=== PATIENT | male | born 1945 | race Caucasian/White ===

== ENCOUNTER 2017-05-01 10:20 | Outpatient (CLI) | payer MEDICARE ==
[2017-05-01 12:30] LABS: Hematocrit 44.5 % (42.0-52.0); Red Blood Cell (RBC) Count 4.64 mill/uL (4.70-6.10); White Blood Cell (WBC) Count 5.5 thou/uL (4.8-10.8)
[2017-05-01 12:33] LABS: Prothrombin Time 12.7 SEC (12.0-14.7)
== END 2017-05-01 10:21 | disposition home or self-care (01) ==
LOC: LABBT 10:20
PROVIDERS: ATTEND Neurological Surgery
DX: Z01.812 Encounter for preprocedural laboratory examination (principal); M48.061 Spinal stenosis, lumbar region without neurogenic claudication
CPT/HCPCS: 85027; 85610; 85730

== ENCOUNTER 2017-05-04 10:10 | Day surgery (SDC) | payer MEDICARE ==
--- NOTE | 2017-04-27 07:45 | HP ---
HISTORY OF PRESENT ILLNESS: Mr. Redmond is a 71-year-old male that presents with low back pain and generalized shooting pain in the back of his thighs, right greater than left. The pain has been pr esent for several years, but has gotten worse over the last year. 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 The pain is made worse on walking and walk ing downstairs and when lying flat. The pain is made somewhat better when given analgesics. He has had physical therapy and walks approximately 5 miles a day. He works out every day which has Science. He has not had any injections in his back from pain management. MRI of the lumbar spine at [facility] on CD. X-rays at [facility] [place]. REVIEW OF SYSTEMS: Ten-point review of systems completed and is otherwise negative unless stated in the above HPI. PAST MEDICAL HISTORY: Low back pain and knee pain. PAST SURGICAL HISTORY: Knee surgery at age 52. HOSPITALIZATIONS: Constipation at age 71. FAMILY HISTORY: Father is , diagnosed with diabetes. Mother is , diagnosed with hy pertension. Siblings are alive, diagnosed with diabetes and hypertension and heart disease. SOCIAL HISTORY: Nonsmoker, retired, , has two children. MEDICATIONS: 1. Taking temazepam 30 mg capsule 1 capsule at bedtime as needed orally once a day. 2. Bupropion HCL ER 50 mg tablet extended release 12-hour 1 tablet in the morning orally once a day . 3. Lisinopril 10 mg tablet 1 tablet orally once a day. 4. Simvastatin 20 mg tablet 1 tablet in the evening orally once daily. 5. Escitalopram oxalate 20 mg tablet 0.5 mg tablet orally once a day. 6. Trazodone. 7. Tamsulosin HCL 0.4 mg capsule 1 capsule orally once a day. ALLERGIES: CLARITIN. PHYSICAL EXAMINATION: HEENT: Normocephalic and atraumatic. Hearing is intact. Moist mucous membranes. Trachea midline. Eyes: Pupils are equal and reactive to light. Extraocular muscles are intact. Sclerae is white and nonicteric. PSYCHIATRIC: Normal mood and affect. CARDIOVASCULAR/CARDIOPULMONARY: Regular rate and rhythm, normal S1, S2 heart sounds: No clubbing o r cyanosis noted. Intact pedal pulses bilaterally. MUSCULOSKELETAL: Lower extremity, 5/5 strength in bilateral iliopsoas, quadriceps, hamstrings, righ t tibialis anterior and extensor hallucis longus. Sensory deficits in the right greater than left i n the low back and posterior thighs. Tender to palpation of the right SI joint. RESPIRATORY: Even respirations, good effort all lung mackenzie sound clear with no wheezing or crackle s. NEUROLOGIC: Cranial nerves II-XII are grossly intact. Speech is fluent. He answers my questions a ppropriately. The patient has normal gait and station. ASSESSMENT: 1. Lumbar spinal stenosis. 2. Lumbar radiculopathy. PLAN: Since the patient has failed therapy, physical therapy and SI joint/lumbar MYLA injections hav e not been helping. Dr. Manuel offered a lumbar laminectomy to treat his leg pain. We have revi ewed the risks, benefits, and possible complications of surgery with Mr. Redmond and he is fully un derstands the risks and is willing to proceed with the surgery.
[2017-05-01 10:41] VITALS: BMI 25.4
[2017-05-04] MEDS ORDERED: CEFAZOLIN/Water 2 GM/20 ML SYRINGE ONE (11:04)
[2017-05-04] MEDS ORDERED: Midazolam HCl 2 mg/2 ml Vial ONE ×2 (11:04→12:09)
[2017-05-04] MEDS ORDERED: Sodium Chloride 0.9% 20 ML ONE (11:49)
[2017-05-04] MEDS ORDERED: Thrombin 5000 UNITS/5 ML VIAL ONE (11:49)
[2017-05-04] MEDS ORDERED: Bupivacaine PF 0.5% 30 ML VIAL ONE (11:49)
[2017-05-04] MEDS ORDERED: Fentanyl 250 MCG/5 ML VIAL ONE (12:08)
[2017-05-04] MEDS ORDERED: Rocuronium Bromide 50 MG/5 ML VIAL ONE (12:13)
[2017-05-04] MEDS ORDERED: Ondansetron HCl/PF 4 MG/2 ML Vial ONE (12:32)
[2017-05-04] MEDS ORDERED: PHENYLEPHRINE-NS 100 MCG/ML 10 ML SYRINGE ONE (12:32)
[2017-05-04] MEDS ORDERED: Propofol 200 MG/20 ML VIAL ONE (12:32)
[2017-05-04] MEDS ORDERED: ePHEDrine/0.9% NaCl/PF SYRINGE 50 mg/10 ml ONE (12:32)
[2017-05-04] MEDS ORDERED: Dexamethasone 20 MG/5 ML VIAL ONE (12:32)
[2017-05-04] MEDS ORDERED: Lidocaine 2% PF 10 ML AMP (For Epidural Use) ONE (12:32)
[2017-05-04] MEDS ORDERED: Calcium Chloride 1 GM/10 ML Abboject SYRINGE ONE (13:58)
[2017-05-04] MEDS ORDERED: HYDROcodone/Acetaminophen 5/325 mg Tablet ONE ×2 (16:23)
--- NOTE | 2017-05-04 17:41 | OP ---
DATE OF PROCEDURE: 05/04/2017 SURGEON: Aida Manuel M.D. CLINICAL RN: Vladimir Miramontes PA-C. PREOPERATIVE INDICATION: Treat pain, prevent neurological deterioration. PREOPERATIVE DIAGNOSES: Severe lumbar stenosis with neurogenic claudication, L2-L3 and L3-L4. POSTOPERATIVE DIAGNOSES: Severe lumbar stenosis with neurogenic claudication, L2-L3 and L3-L4. OPERATIVE PROCEDURE: Decompressive laminectomy, medial facetectomy, foraminotomy L2-L3, L3-L4. PREOPERATIVE MEDICATION: Ancef 2 grams IV. DRAIN NUMBER: Zero. DRAIN TYPE: None. OPERATIVE DICTATION: The patient was brought to the operating room. General endotracheal anesthesi a was induced. The patient was positioned prone on the operating table with his chest and hips supp orted by gel-filled chest rolls. A lateral fluoro radiograph was used to plan our incision. The [facility] skin was sterilely prepped and draped. We opened our incision with a 10 blade knife and contro lled bleeding with bipolar and monopolar cautery. We used monopolar cautery to dissect through the subcutaneous tissues to the thoracodorsal fascia. We incised the fascia in the midline and reflecte d the paraspinal muscles off the spinous process and lamina of the L2, L3, and L4. A self-retaining retractor was placed. A lateral fluoro radiograph confirmed the levels upon which we were operatin g. We then removed the spinous processes of L2 and L3 and the superior portion of L4. We thinned t he lamina with a high speed drill. Using a Kerrison rongeur, we fashioned the laminectomy from the bottom of L3 to the L2 pedicles. We widened our laminectomy defect until we were flush with the L2, L3, and L4 pedicles. We undermined the lateral recesses were performed medial facetectomies. We p erformed foraminotomies over the exiting, L2, L3, and L4 nerve roots. We irrigated copiously with b acitracin irrigation. We waxed the bone edges. We controlled ventral epidural bleeding with gentle bipolar cautery. We passed a Taylor ball probe from the spinal canal of the foramen with each of t he L2, L3, and L4 nerve roots on each side. We infused local anesthetic in the paraspinal muscles a nd closed the wound in anatomic layers and applied a sterile dressing. This was a clean case and no contamination.
== END 2017-05-04 17:25 | disposition home or self-care (01) ==
LOC: SDC 10:10
PROVIDERS: ATTEND Neurological Surgery
PROC: 00NY0ZZ Release Lumbar Spinal Cord, Open Approach (ICD-10-PCS; principal; 2017-05-04)
DX: M48.062 Spinal stenosis, lumbar region with neurogenic claudication (principal); M54.16 Radiculopathy, lumbar region; Z79.899 Other long term (current) drug therapy; Z82.49 Family history of ischemic heart disease and other diseases of the circulatory system; Z83.3 Family history of diabetes mellitus; Z98.890 Other specified postprocedural states
CPT/HCPCS: 76001; A4216; J1100; J2001; J2250; J2405; J2704; J3010; J3370; J3490; S0020

== ENCOUNTER 2018-12-11 10:04 | Outpatient (CLI) | payer MEDICARE ==
[~2018-12-11 10:04] MED LIST: Gadobenate Dimeglumine 529 MG/1 ML (20ML VIAL) ONE
--- NOTE | 2018-12-11 11:43 | MRI ---
MR the lumbar spine with and without contrast INDICATION: Postlaminectomy syndrome COMPARISON: Lumbar spinal radiograph dated March 09, 2017 TECHNIQUE: Multiplanar multisequence MR images were obtained of lumbar spine with and without IV cont rast. Contrast: 18 cc of MultiHance. FINDINGS: Bone marrow: Normal. Distal spinal cord and conus: Normal. Conus is seen to terminate at the T12-L1 level. Visualized retroperitoneum and paraspinal soft tissues: Normal. No lymphadenopathy demonstrated. Vertebral levels: L5-S1: There is mild facet joint degenerative change and a broad-based disc bulge but no appreciable central canal or neural foraminal narrowing. L4-5: There is a broad-based disc bulge with facet hypertrophy inducing mild central canal narrowing with moderate to severe bilateral neural foraminal narrowing. L3-4: There is slight retrolisthesis of L3 on L4. There is an asymmetric to the left disc osteophyte complex and facet hypertrophy inducing severe bilateral neural foraminal narrowing. There are laminectomy changes at the L3-4 level. L2-3: There are laminectomy changes at L2-3. There is a broad-based disc osteophyte complex and facet hypertrophy inducing moderate right and mild left neural foraminal narrowing. L1-L2: There is a broad-based disc bulge with a superimposed right paracentral protrusion. The protru lacie mildly effaces the right ventrolateral subarachnoid space without significant central canal narrowing. T12-L1: There is a right caudad extending paracentral disc extrusion measuring 1.4 x 1.4 cm in its gr eatest craniocaudad and mediolateral dimensions respectively. This is causing mild effacement of the right ventrolateral subarachnoid space without definite nerve root compression. This is superimpo sed on a mild broad-based bulge. No appreciable neural foraminal narrowing is evident. Postcontrast series: There is mild enhancement of the paraspinal musculature of the lower lumbar spin e likely related to fibrosis from the patient prior surgical change. No definite intrathecal abnormal enhancement is grossly evident. IMPRESSION: 1. Postoperative lumbar spine with moderate to severe multilevel spondylosis. No abnormal enhancement demonstrated. 2. Multilevel neural foraminal narrowing as detailed above.
--- NOTE | 2018-12-11 11:48 | RAD ---
EXAM: Lumbar spine 3 views DATE: 12/11/2018 12:00 AM INDICATION: Degenerative disc disorder with radiculopathy COMPARISON: Prior lumbar radiograph dated March 09, 2017 FINDING: There are laminectomies at L2-3 and L3-4. There is mild retrolisthesis of L4 on L5, L3 on L4 and L2 on L3. These do not appreciably reduce with flexion. The retrolisthesis of L2 on 3 and L3-4 slightly accentuated with extension. There is vacuum disc phenomenon at the L2-3 and L3-4 levels like ly related to some disc instability. There are vascular calcifications involving abdominal aorta. No acute fracture or subluxation is evident. IMPRESSION:Moderate to severe spondylosis of the lumbar spine. Abnormal translational motion as above .
== END 2018-12-11 10:05 | disposition home or self-care (01) ==
LOC: SCSMRI 10:04
PROVIDERS: ATTEND Specialist
DX: M96.1 Postlaminectomy syndrome, not elsewhere classified (principal); M51.16 Intervertebral disc disorders with radiculopathy, lumbar region; M47.26 Other spondylosis with radiculopathy, lumbar region; M48.061 Spinal stenosis, lumbar region without neurogenic claudication
CPT/HCPCS: 72100; 72158; 82565; A9577